=== PATIENT | male | born 1995 | race Caucasian/White ===

== ENCOUNTER 2017-01-26 19:14 | Emergency (ER) | payer BC ==
--- NOTE | 2017-01-26 20:24 | RAD ---
CLINICAL HISTORY: Right flank pain COMPARISON: None TECHNIQUE: Multiple contiguous axial CT scans were obtained of the abdomen and pelvis, without intravenous contrast enhancement. Coronal and sagittal multiplanar reformations are submitted for review. Oral contrast was not administered. FINDINGS: The study is limited by the lack of intravenous contrast. This limits evaluation of the solid organs and vasculature. LUNG BASES: The lung bases are clear. LIVER: The liver is normal in shape, size, contour, and attenuation. BILE DUCTS: There is no intrahepatic or extrahepatic biliary dilatation. GALLBLADDER: The gallbladder is normal, without pericholecystic inflammatory change. PANCREAS: The pancreas is normal, without mass or ductal dilatation. SPLEEN: Normal in size and appearance. UPPER GI TRACT: Evaluation of the gastrointestinal tract is limited by incomplete gastric distention. The upper GI tract is unremarkable. SMALL BOWEL AND MESENTERY: The small bowel is normal in contour, course, and caliber. There is no obstruction or dilatation. COLON: There is a tubular, vermiform, hollow viscus that is blind ending, and originates from the cecum, consistent with a normal appendix. There is no periappendiceal inflammatory change. This is best seen on axial images 123 through 147. ADRENALS: Normal bilaterally. KIDNEYS: The kidneys are normal in shape, size, contour, and axis. There is no hydronephrosis or nephrolithiasis. BLADDER: The bladder is incompletely distended and is not well evaluated. PELVIC ORGANS: The prostate gland is normal. The seminal vesicles are symmetric. AORTA: The aorta is normal. IVC: Unremarkable LYMPH NODES: There is no lymphadenopathy by size criteria. ABDOMINAL WALL: There is no evidence for abdominal wall hernia. BONES AND SOFT TISSUES: Mild degenerative changes are noted most pronounced at L4-L5 OTHER: None IMPRESSION: NO HYDRONEPHROSIS OR NEPHROLITHIASIS
[2017-01-26] MEDS ORDERED: Ketorolac INJ* 60 MG/2 ML VIAL IM ONE (20:55)
[2017-01-26 21:05] VITALS: BP 122/72
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
[2017-01-26] MEDS ORDERED: Cephalexin CAP* 500 MG PO ONE (21:12)
== END 2017-01-26 21:19 | disposition home or self-care (01) ==
LOC: UCCORT 19:14
DX: M54.5 Low back pain (principal); R31.9 Hematuria, unspecified
CPT/HCPCS: 74176; 81003; 96372; 99202; A9270-GY; G0463; J1885

== ENCOUNTER 2017-06-06 16:44 | Emergency (ER) | payer BC ==
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
[2017-06-06 17:41] VITALS: BP 141/78
== END 2017-06-06 17:59 | disposition home or self-care (01) ==
LOC: UCCORT 16:44
DX: J32.9 Chronic sinusitis, unspecified (principal); H92.01 Otalgia, right ear; H92.02 Otalgia, left ear
CPT/HCPCS: 99212; G0463